=== PATIENT | male | born 1985 | race Caucasian/White ===

== ENCOUNTER 2017-01-04 18:38 | Emergency (ER) | payer OTHER ==
[~2017-01-04] VITALS: Ht 180.3 cm; Wt 118.8 kg
[~2017-01-04 18:38] MED LIST: BACLOFEN10 MG PO; CLONAZEPAM1 MG PO; DIAZEPAM10 MG PO; DIAZEPAM5 MG PO; FLEXERIL10 MG PO; FLUOXETINE HCL10 MG PO; LODINE200 MG PO; LOPRESSOR25 MG PO; LOPRESSOR50 MG PO; MEDROL DOSEPAK4 MG PO; METHOCARBAMOL500 MG PO; MOBIC15 MG PO; OMEPRAZOLE40 M1 PO; PERCOCET 5/31 TABLET PO; PRAZOSIN HCL2 MG PO; PROAIR RESPICL90 MCG IH; TRAMADOL HCL50 MG PO; TRAZODONE HCL150 MG PO; VIAGRA100 MG PO; WELLBUTRIN XL300 MG PO; WELLBUTRIN100 MG PO; ZOFRAN4 MG PO; ZOLOFT100 MG PO
[2017-01-04] MEDS ORDERED: ESZOPICLONE2 MG PO (19:12)
[2017-01-04] MEDS ORDERED: INDERAL80 MG PO (19:13)
[2017-01-04] MEDS ORDERED: NEURONTIN300 MG PO (19:13)
[2017-01-04] MEDS ORDERED: COZAAR25 MG PO (19:14)
[2017-01-04] MEDS ORDERED: TOPIRAMATE25 MG PO (19:14)
[2017-01-04] MEDS ORDERED: ESCITALOPRAM OX20 MG PO (19:15)
[2017-01-04] MEDS ORDERED: BACLOFEN10 MG PO (19:16)
[2017-01-04] MEDS ORDERED: PERCOCET 5/31 TABLET PO (22:49)
[2017-01-04] MEDS ORDERED: NAPROSYN500 MG PO (22:51)
[2017-01-04 23:05] VITALS: BP 135/87
== END 2017-01-04 23:06 | disposition home or self-care (01) ==
LOC: EME 18:38
DX: M25.562 Pain in left knee (principal); I10 Essential (primary) hypertension
CPT/HCPCS: 73564; 93971; 99281; 99284

== ENCOUNTER 2018-01-09 07:45 | Emergency (ER) | payer OTHER, BC ==
[~2018-01-09] VITALS: Ht 180.3 cm; Wt 118.8 kg
[~2018-01-09 07:45] MED LIST changes: +COZAAR25 MG PO; +ESCITALOPRAM OX20 MG PO; +ESZOPICLONE2 MG PO; +INDERAL80 MG PO; +NAPROSYN500 MG PO; +NEURONTIN300 MG PO; +TOPIRAMATE25 MG PO
[2018-01-09] MEDS ORDERED: NORCO 5/3251 TABLET PO (09:54)
[2018-01-09] MEDS ORDERED: INDOCIN50 MG PO (09:54)
[2018-01-09 10:31] VITALS: BP 135/105
== END 2018-01-09 10:38 | disposition home or self-care (01) ==
LOC: EME 07:45
PROC: 2W3MX1Z Immobilization of Left Lower Extremity using Splint (ICD-10-PCS; principal; 2018-01-09)
DX: M25.572 Pain in left ankle and joints of left foot (principal); F43.10 Post-traumatic stress disorder, unspecified
CPT/HCPCS: 73610; 73630; 99281; 99284